=== PATIENT | female | born 1975 | race Caucasian/White ===

== ENCOUNTER → 2018-07-25 14:50 | Outpatient (CLI) | payer OTHER, MEDICAID, SELFPAY ==
[2018-07-25 15:33] LABS: Add Manual Diff / Slide Review NO; Basophils Percent Auto 0.4 % (0-2); Eosinophils Percent Auto 0.7 % (2-4); Hematocrit 40.6 % (36-46); Hemoglobin 13.7 g/dL (12.0-16.0); Lymphocytes Percent Auto 19.3 % (25-40); Mean Corpuscular HGB Conc 33.8 % (30-36); Mean Corpuscular Hemoglobin 30.3 PG (26-34); Mean Corpuscular Volume 89.8 fL (80-100); Monocytes Percent Auto 3.9 % (3-14); Neutrophils Absolute Auto 6100 /uL (3000-5900); Neutrophils Percent Auto 75.7 % (50-75); Platelet Count 237 X10^3/uL (150-400); Red Blood Cell Count 4.53 X10^6/uL (4.0-5.2)
[2018-07-25 17:10] LABS: Alanine Aminotransferase 18 IU/L (9-52); Albumin 4.6 g/dL (3.5-5.0); Albumin Globulin Ratio 1.6 (1.0-2.8); Alkaline Phosphatase 63 U/L (38-126); Aspartate Aminotransferase 15 IU/L (14-36); Bilirubin Total 0.5 mg/dL (0.2-1.3); Blood Urea Nitrogen 8 mg/dL (7-17); Calcium 9.7 mg/dL (8.4-10.2); Carbon Dioxide 24 mmol/L (22-32); Chloride 105 mmol/L (98-107); Estimated Glomerular Filt Rate > 60.0 mL/min (>60); Globulin 2.8 g/dL (1.7-4.1); Glucose 92 mg/dL (70-100); HEMOLYSIS < 15 (0-50); Potassium 4.4 mmol/L (3.4-5.1); Sodium 141 mmol/L (137-145); Total Protein 7.4 g/dL (6.3-8.2)
== END ==
PROVIDERS: Family Provider Family Medicine; PCP Family Medicine; Visit Provider Family Medicine
DX: Z79.899 Other long term (current) drug therapy (principal); G89.29 Other chronic pain; F90.0 Attention-deficit hyperactivity disorder, predominantly inattentive type; F33.9 Major depressive disorder, recurrent, unspecified; M79.7 Fibromyalgia
CPT/HCPCS: 36415; 80053; 85025

== ENCOUNTER → 2018-07-31 12:24 | Outpatient (CLI) | payer OTHER, MEDICAID, SELFPAY ==
--- NOTE | 2018-07-31 | DI.RAD.S_ITS ---
PROCEDURE: XR FOREARM RT 2V INDICATIONS: RIGHT FOREARM PAIN POST TRAUMA TECHNIQUE: 2 views of the forearm were acquired. COMPARISON: None. FINDINGS: Bones: No fractures or dislocations. No suspicious bony lesions. Soft tissues: No suspicious soft tissue calcifications or masses. IMPRESSION: No fracture or dislocation. Dictated by: Tina Garcia M.D. on 07/31/2018 at 16:46 Approved by: Tina Garcia M.D. on 07/31/2018 at 16:46
== END ==
PROVIDERS: PCP Family Medicine; Visit Provider Family Medicine
DX: S59.911A Unspecified injury of right forearm, initial encounter (principal)
CPT/HCPCS: 73090

== ENCOUNTER → 2019-05-09 16:35 | Outpatient (CLI) | payer OTHER, MEDICAID, SELFPAY ==
--- NOTE | 2019-05-09 | DI.RAD.S_ITS ---
PROCEDURE: XR SACROILIAC JOINT MIN 3V INDICATIONS: LOW BACK PAIN TECHNIQUE: 3 views of the sacroiliac joints were acquired. COMPARISON: [facility], CR, XR LUMBAR SPINE 2-3V, 05/09/2019, 16:41. FINDINGS: Bones: No bony erosions or ankylosis. No suspicious bony lesions. No fractures. Mild joint narrowing with periarticular osteophyte formation the SI joints bilaterally. Soft tissues: Overlying bowel gas pattern is normal. No suspicious soft tissue densities. IMPRESSION: Minimal symmetric SI joint degeneration. Dictated by: Thien Do [facility] Interpreted: Hema Sims MD on 05/09/2019 at 16:58 Approved by: Hema Sims M.D. on 05/10/2019 at 16:17
--- NOTE | 2019-05-09 | DI.RAD.S_ITS ---
PROCEDURE: XR LUMBAR SPINE 2-3V INDICATIONS: LUMBAR RADICULOPATHY TECHNIQUE: 3 views of the lumbar spine were acquired. COMPARISON: None. FINDINGS: Bones: 5 [id number] vertebrae are present. There is normal bony alignment. No vertebral body compression fractures. Mild intervertebral disc space height loss at the L5-S1 level. There is multilevel small anterior osteophytes. Lower lumbar spine facet disease. SI joints are unremarkable No suspicious bony lesions. Soft tissues: Overlying bowel gas pattern is normal. No suspicious soft tissue calcifications. Metallic structure overlying the lower abdomen/pelvis. IMPRESSION: Mild DDD of the lumbar spine. No compression fracture. Dictated by: Magdi Mosqueda M.D. on 05/09/2019 at 17:16 Approved by: Magdi Mosqueda M.D. on 05/09/2019 at 17:19
--- NOTE | 2019-05-09 | DI.RAD.S_ITS ---
PROCEDURE: XR CERVICAL SPINE 2V OR 3V INDICATIONS: NECK PAIN TECHNIQUE: 3 view(s) of the cervical spine were acquired. COMPARISON: None. FINDINGS: Bones: No fractures or dislocations to the C7 level. There is moderate degenerative change in the cervical spine most pronounced at C5-C6 where there is intervertebral disc space height loss, osteophytosis, and endplate sclerosis. The lateral masses of C1 appear intact on the odontoid view. No suspicious bony lesions. Soft tissues: No prevertebral soft tissue swelling. IMPRESSION: Moderate degenerative change in the cervical spine most pronounced at the C5-C6 level. Dictated by: Magdi Mosqueda M.D. on 05/09/2019 at 17:19 Approved by: Magdi Mosqueda M.D. on 05/09/2019 at 17:20
== END ==
PROVIDERS: Family Provider Family Medicine; PCP Family Medicine; Visit Provider Family Medicine
DX: M47.812 Spondylosis without myelopathy or radiculopathy, cervical region (principal); M47.818 Spondylosis without myelopathy or radiculopathy, sacral and sacrococcygeal region; M54.5 Low back pain; M54.2 Cervicalgia
CPT/HCPCS: 72040; 72100; 72202

== ENCOUNTER → 2019-12-16 10:35 | Outpatient (CLI) | payer OTHER, MEDICAID, SELFPAY ==
[2019-12-16 12:39] LABS: Add Manual Diff / Slide Review NO; Basophils Absolute Auto 0 /uL (0-100); Basophils Percent Auto 0.4 % (0-2); Eosinophils Absolute Auto 0 /uL (0-450); Eosinophils Percent Auto 0.6 % (2-4); Hematocrit 42.5 % (36-46); Hemoglobin 14.6 g/dL (12.0-16.0); Lymphocytes Absolute Auto 1700 /uL (1100-4500); Lymphocytes Percent Auto 21.8 % (25-40); Mean Corpuscular HGB Conc 34.2 % (30-36); Mean Corpuscular Hemoglobin 31.3 PG (26-34); Mean Corpuscular Volume 91.5 fL (80-100); Monocytes Absolute Auto 300 /uL (0-900); Monocytes Percent Auto 4.4 % (3-14); Neutrophils Absolute Auto 5700 /uL (1500-7000); Neutrophils Percent Auto 72.8 % (50-75); Platelet Count 331 X10^3/uL (150-400); Red Blood Cell Count 4.65 X10^6/uL (4.0-5.2); Red Cell Distribution Width 13.9 % (11.6-14.8); White Blood Cell Count 7.9 X10^3/uL (4.5-11.0)
[2019-12-16 13:18] LABS: Alanine Aminotransferase 14 IU/L (<35); Albumin Globulin Ratio 1.6 (1.0-2.8); Alkaline Phosphatase 68 U/L (38-126); Aspartate Aminotransferase 27 IU/L (14-36); Blood Urea Nitrogen 8 mg/dL (7-17); Calcium 9.4 mg/dL (8.4-10.2); Carbon Dioxide 24 mmol/L (22-32); Chloride 104 mmol/L (98-107); Estimated Glomerular Filt Rate > 60.0 mL/min (>60); Globulin 3.2 g/dL (1.7-4.1); Glucose 87 mg/dL (70-100); HEMOLYSIS 38 (0-50); Potassium 4.7 mmol/L (3.4-5.1); Sodium 137 mmol/L (137-145); Total Protein 8.2 g/dL (6.3-8.2)
== END ==
PROVIDERS: Family Provider Family Medicine; PCP Family Medicine; Referring Provider Family Medicine; Visit Provider Family Medicine
DX: K27.9 Peptic ulcer, site unspecified, unspecified as acute or chronic, without hemorrhage or perforation (principal); M54.16 Radiculopathy, lumbar region; F90.0 Attention-deficit hyperactivity disorder, predominantly inattentive type; F33.9 Major depressive disorder, recurrent, unspecified; G89.29 Other chronic pain; Z79.899 Other long term (current) drug therapy
CPT/HCPCS: 36415; 80053; 85025